=== PATIENT | female | born 1945 | race Caucasian/White ===

== ENCOUNTER 2020-11-19 13:09 | Outpatient (CLI) | payer MEDICARE, OTHER, SELFPAY | END 2020-11-19 13:10 | disposition home or self-care (01) | LOC: ANHSURGERY 13:18 | PROVIDERS: PCP Family Medicine; Visit Provider Urology | DX: N36.42 Intrinsic sphincter deficiency (ISD) (principal) | CPT/HCPCS: 87077; 87086; 87088; 87186 ==

== ENCOUNTER → 2020-11-25 01:36 | Outpatient (CLI) | payer MEDICARE, OTHER, SELFPAY ==
[2020-11-25 17:24] LABS: SARS-CoV-2 RNA PCR Negative
== END ==
PROVIDERS: PCP Family Medicine; Visit Provider Urology
DX: Z01.812 Encounter for preprocedural laboratory examination (principal); Z20.822 Contact with and (suspected) exposure to COVID-19
CPT/HCPCS: C9803; U0003; U0005

== ENCOUNTER 2020-11-28 00:27 | Day surgery (SDC) | payer MEDICARE, OTHER, SELFPAY ==
[2020-11-14 12:57] VITALS: BMI 40.8
--- NOTE | 2020-11-22 10:11 | P.HP_ITS ---
H&P: HPI History of Present Illness Date/Time: 11/22/20 10:11 75-year-old with mixed incontinence. She is here for treatment of her intrinsic sphincter deficiency Chief Complaint: intrinsic sphincter deficiency Review of Systems Review of Systems: All systems reviewed & are unremarkable except as noted in HPI and below PMFSH Family History Family History (Updated 11/22/20 @ 10:13 by Dante Tai MD) Other Carcinoma of colon Heart disease Social History Social History Smoking status: Never smoker Second hand tobacco smoke exposure: No Alcohol intake: current Drinks per week: 1 Substance use: never Spiritual care concerns: No Meds Home Medications and Allergies Home Medications Medication Instructions Recorded Confirmed Type Miratex 0.25 mg HS 11/14/20 11/14/20 History amlodipine 2.5 mg PO DAILY 11/14/20 11/14/20 History apixaban [Eliquis] 5 mg BID 11/14/20 11/14/20 History aspirin [Aspir-81] 81 mg PO DAILY 11/14/20 11/14/20 History cetirizine [Zyrtec] 10 mg QAM 11/14/20 11/14/20 History cholecalciferol (vitamin D3) 1,250 mcg PO WEEKLY 11/14/20 11/14/20 History epinephrine [Epi E-Z Pen] 0.3 mg IM ONCE PRN 11/14/20 11/14/20 History fluticasone propionate [Flonase 1 spray INTRANASAL HS 11/14/20 11/14/20 History Allergy Relief] latanoprost 1 drp 11/14/20 11/14/20 History levothyroxine [Synthroid] 125 mcg QAM 11/14/20 11/14/20 History losartan 25 mg DAILY 11/14/20 11/14/20 History metoprolol succinate 50 mg PO QAM 11/14/20 11/14/20 History mirabegron [Myrbetriq] 50 mg PO QAM 11/14/20 11/14/20 History oxybutynin chloride 10 mg PO QAM 11/14/20 11/14/20 History Allergies Allergy/AdvReac Type Severity Reaction Status Date / Time No Known Allergies Allergy Verified 11/14/20 12:57 Exam Const: General: cooperative HENMT: Head: normal to inspection Face and sinus: normal facial exam Eyes: General: appearance normal, both eyes and all related structures Resp: Effort & Inspection: normal respiratory effort and able to speak in com plete sentences Back/Spine/Pelvis: Back: no CVA tenderness Skin: General skin exam: normal color Assessment and Plan Assessment and plan (1) Intrinsic sphincter deficiency (ISD): Code(s): N36.42 - Intrinsic sphincter deficiency (ISD) Status: Acute Assessment and Plan: cystoscopy with bulking agent
--- NOTE | 2020-11-27 16:18 | WPDANESEPPF ---
Anes - Initial Pre Proc Eval Procedure: Operation Date: 11/28/20 10:00 Proposed Procedures p Cystoscopy with Macroplastique Bulking Agent - Dante Tai MD Date/Time: 11/27/20 16:18 Surgeon: Dante Tai MD Pre Op Diagnosis: ISD Patient Data Age: 75 Gender: F Height: 1.6 m Weight: 104.54 kg Allergies Allergy/AdvReac Type Severity Reaction Status Date / Time No Known Allergies Allergy Verified 11/28/20 08:36 Home Medications Medication Instructions Recorded Confirmed Type Miratex 0.25 mg HS 11/14/20 11/28/20 History amlodipine 2.5 mg PO DAILY 11/14/20 11/28/20 History apixaban [Eliquis] 5 mg BID 11/14/20 11/28/20 History aspirin [Aspir-81] 81 mg PO DAILY 11/14/20 11/28/20 History cetirizine [Zyrtec] 10 mg QAM 11/14/20 11/28/20 History cholecalciferol (vitamin D3) 1,250 mcg PO WEEKLY 11/14/20 11/28/20 History epinephrine [Epi E-Z Pen] 0.3 mg IM ONCE PRN 11/14/20 11/28/20 History fluticasone propionate [Flonase 1 spray INTRANASAL HS 11/14/20 11/28/20 History Allergy Relief] latanoprost 1 drp 11/14/20 11/28/20 History levothyroxine [Synthroid] 125 mcg QAM 11/14/20 11/28/20 History losartan 25 mg DAILY 11/14/20 11/28/20 History metoprolol succinate 50 mg PO QAM 11/14/20 11/28/20 History mirabegron [Myrbetriq] 50 mg PO QAM 11/14/20 11/28/20 History oxybutynin chloride 10 mg PO QAM 11/14/20 11/28/20 History Patient hx anesthesia problems: none Family hx anesthesia problems: none [facility] Past Medical History Medical History (Updated 11/27/20 @ 16:19 by Butch Kohler MD) Arthritis Atrial fibrillation Hypertension Intrinsic sphincter deficiency (ISD) Morbid obesity with BMI of 40.0-44.9, adult DELIA (obstructive sleep apnea) Osteoarthritis Surgical History Surgical History (Updated 11/27/20 @ 16:19 by Butch Kohler MD) History of lithotripsy History of oophorectomy Family History Family History (Updated 11/22/20 @ 10:13 by Dante Tai MD) Other Carcinoma of colon Heart disease Social History Social History Smoking status: Never smoker Second hand tobacco smoke exposure: No Alcohol intake: current Drinks per week: 1 Substance use: never Living arrangements: alone Spiritual care concerns: No Anes - Eval Final PreProcedure Day of Procedure 11/27/20 16:18 Patient weight: obese Heart: regular rate and rhythm Lungs: clear to auscultation and normal air movement Airway: Mallampati scale class II Neurological: alert and oriented Last oral intake: >/= 8 hours ASA classification: III Emergent: no Anesthetic plan: proceed Anesthesia type and monitoring: general LMA Informed Consent: The patient's anesthetic plan and its attendant risks and benefits were discussed with the patient/family/POA. Questions were solicited and answers provided to the satisfaction of the patient/family/POA.
--- NOTE | 2020-11-28 07:17 | WPDHPUPDATE1 ---
History and Physical Update Update Date/Time: 11/28/20 07:17 History and Physical has been reviewed, including an updated exam of the patient. There are NO changes in the patient's condition. Risks, benefits, and alternatives have been discussed and questions answered. Patient agrees to proceed with procedure.
[2020-11-28 08:17] VITALS: BP 143/56; PULSE 61; RESP 18; TEMP 35.9; O2SAT 97
[2020-11-28] MEDS: LACTATED RINGERS 1,000 ML 30 ML IV CONT (08:25)
[2020-11-28] MEDS: ceFAZolin 2 GM/D5W 50 ML 2 GM/50 ML BAG IVPB (11:24)
[2020-11-28] MEDS: LIDOCAINE HCL 2% GEL UROJET 10 ML PKG MUCOUS MEM (11:36)
--- NOTE | 2020-11-28 11:45 | W.PM.PROC2 ---
Procedure Note - Detailed Date of Procedure 11/28/20 Pre-op Diagnosis ISD Post-op Diagnosis same Procedure Performed cystoscopy of suburethral injection of implant material Surgeon Dante Tai MD Anesthesia MAC Indications this is a 75-year-old with mixed incontinence. She has significant overactive bladder as well as intrinsic sphincter deficiency. She presents today for a bulking agent. She understands the success rate of 70-80%. She understands she may need repeat procedures. She understands of the potential need for catheterization. Findings Open urethra consistent with intrinsic sphincter deficiency. Lichen sclerosis which is significant as well as atrophic vaginitis Description of Procedure she was correctly identified. Informed consent obtained. She from the operating room. She was given mac anesthesia. She was prepped and draped in a sterile fashion. She was given appropriate antibiotics. a time-out performed. She had significant lichen sclerosis and a trophic changes. Her bladder was normal other than mild trabeculations. Urethra open consistent with intrinsic sphincter deficiency. I injected my bulking agent into the 10, 2, 6 o'clock position. There is good bulking effect. I used 1 syringe. Her bladder was drained with a 14 [place] red rubber catheter. She was awakened transferred to PACU in stable condition. Implants Macroplastique Estimated Blood Loss 1 Drains No Packing No Pathology none sent Complications No immediate complications Condition stable Disposition PACU
[2020-11-28 11:51] VITALS: BP 118/65; PULSE 57; RESP 18; O2SAT 95
[2020-11-28 12:30] VITALS: BP 143/82; PULSE 53; RESP 18
[2020-11-28 13:00] VITALS: BP 150/80; PULSE 62; RESP 14
== END 2020-11-28 13:20 | disposition home or self-care (01) ==
PROVIDERS: PCP Family Medicine; Visit Provider Urology
PROC: 3E0K8GC Introduction of Other Therapeutic Substance into Genitourinary Tract, Via Natural or Artificial Opening Endoscopic (ICD-10-PCS; CPT 51715; principal; 2020-11-28 10:00)
DX: N36.42 Intrinsic sphincter deficiency (ISD) (principal); L90.0 Lichen sclerosus et atrophicus; I48.91 Unspecified atrial fibrillation; I10 Essential (primary) hypertension; G47.33 Obstructive sleep apnea (adult) (pediatric); M19.90 Unspecified osteoarthritis, unspecified site; E66.01 Morbid (severe) obesity due to excess calories; Z68.41 Body mass index [BMI] 40.0-44.9, adult
CPT/HCPCS: 51715; A9270; J0131; J0690; J1100; J2405; J2704; J3010; J7120; L8606